=== PATIENT | male | born 1955 | race Caucasian/White ===

== ENCOUNTER → 2016-10-09 | Outpatient (CLI) | payer BC ==
--- NOTE | 2016-10-09 15:48 | US ---
EXAMINATION TYPE: US venous doppler duplex LE LT DATE OF EXAM: 10/09/2016 3:26 PM COMPARISON: No previous CLINICAL HISTORY: 61-year-old male pain in left lower limb. Left medial thigh pain and redness TECHNIQUE: Duplex Doppler ultrasound examination of the left lower extremity. FINDINGS: SIDE PERFORMED: Left VESSELS IMAGED: External Iliac Vein (EIV) Common Femoral Vein Deep Femoral Vein Greater Saphenous Vein * Femoral Vein Popliteal Vein Small Saphenous Vein * Proximal Calf Veins (* superficial vessels) Left Leg: Negative for DVT. There is superficial thrombus seen within the GSV at left medial thigh a t the area of concern IMP ANNA: 1. No evidence for DVT within the left lower extremity imaged from the groin to the upper calf. 2. Study positive for SVT involving the greater saphenous vein at the site of pain and redness, left medial thigh.
== END | disposition home or self-care (01) ==
LOC: RADUSWWP 14:58
PROVIDERS: ATTEND Family Medicine
DX: I82.812 Embolism and thrombosis of superficial veins of left lower extremity (principal)